=== PATIENT | female | born 1930 | race Caucasian/White ===

== ENCOUNTER → 2017-01-11 | Outpatient (CLI) | payer MEDICARE, OTHER ==
[~2017-01-11] MED LIST: OMEPRAZOLE40 M1 PO
--- NOTE | ~2017-01-11 | CT2 ---
[facility] A Service of [facility] RADIOLOGY TEXT RESULTS PATIENT: RAMANA SEGAL LOCATION: [facility] : 32 UNIT #: [id number] AGE: [address]: Jose Albright MD SEX: F ORDER DR: [id number] [facility] [address] [place], [place] [address] [id number] MR#: [id number] Acc #: [id number] NAME: RAMANA SEGAL : 1930 SEX: F STUDY DATE/TIME: 01/11/2017 12:38 UNIT: [facility] ROOM: STUDY DESCRIPTION: CT Abd and Pelv W Cont Attending Physician: Jose Albright M.D. Referring Physician: Jose Albright M.D. Ordering Physician: Joes Albright M.D. Primary Care Physician: Roman Aiken M.D. MEDICAL IMAGING REPORT This report is preliminary unless electronic signature is present EXAM CT abdomen and pelvis with contrast. INDICATIONS Epigastric abdominal pain and nausea for the past month. PROCEDURE Contrast-enhanced CT of the abdomen and pelvis. COMPARISON None. TECHNIQUE This CT exam was performed with one or more of the following radiation dose reduction techniques: automatic exposure control, adjustment of mA and/or kV according to patient size, and iterative reconstruction. FINDINGS ABDOMEN WITH CONTRAST: Included lung bases are clear. Cardiomegaly. The liver, spleen, adrenal gland unremarkable. There is a 4 mm cyst in the tail of pancreas. 4.6 cm cyst upper pole of the left kidney. Small nonobstructing calculi lower pole left kidney. There are a few stones in the gallbladder but no CT evidence for active inflammation. Bowel loops are nondilated. PELVIS WITH CONTRAST: Previous hysterectomy. No pelvic mass or fluid. IMPRESSION No clearly acute finding. Cholelithiasis without CT evidence for acute inflammation. [facility] A Service of [facility] RADIOLOGY TEXT RESULTS PATIENT: RAMANA SEGAL LOCATION: [facility] : 32 UNIT #: [id number] AGE: [address]: Jose Albright MD SEX: F ORDER DR: Left renal cyst. Tiny cyst in the tail of the pancreas probably represents an incidental finding. Per the ACR white paper, consider a follow up in 12 months. If it is stable at that time, no additional follow up is required. Dictated by... Panda Blankenship M.D. THIS IS AN ELECTRONICALLY VERIFIED REPORT Panda Blankenship M.D. at 01/12/2017 7:06 AM ЕЛЕНА/francisca TD: 01/11/2017 15:09 JOB #: [id number] MEDICAL IMAGING REPORT Page 1 of 1 COPY
[2017-01-11 15:11] LABS: POC - CREATININE 0.62 mg/dL (0.44-1.03); POC - GFR >60.0 mL/min (>60)
== END | disposition home or self-care (01) ==
LOC: CCAT 11:01
PROVIDERS: Internal Medicine Gastroenterology
DX: R10.13 Epigastric pain (principal); K31.1 Adult hypertrophic pyloric stenosis; R14.2 Eructation; R63.0 Anorexia; K30 Functional dyspepsia; T18.2XXA Foreign body in stomach, initial encounter; K21.9 Gastro-esophageal reflux disease without esophagitis; R11.0 Nausea; K31.9 Disease of stomach and duodenum, unspecified; Z88.1 Allergy status to other antibiotic agents; Z88.0 Allergy status to penicillin; Z88.8 Allergy status to other drugs, medicaments and biological substances; K80.20 Calculus of gallbladder without cholecystitis without obstruction; N28.1 Cyst of kidney, acquired; K86.2 Cyst of pancreas
CPT/HCPCS: 74177; 82565; Q9967